=== PATIENT | male | born 1990 | race African-American/Black ===

== ENCOUNTER 2017-01-08 14:07 | Emergency (ER) | payer MEDICAID ==
[~2017-01-08] VITALS: Ht 180.3 cm; Wt 95.0 kg
[2017-01-08 14:57] VITALS: BP 135/85
== END 2017-01-08 16:45 | disposition home or self-care (01) ==
LOC: ER 14:38
DX: T16.1XXA Foreign body in right ear, initial encounter (principal); F42.9 Obsessive-compulsive disorder, unspecified; F17.210 Nicotine dependence, cigarettes, uncomplicated; F12.10 Cannabis abuse, uncomplicated; Z98.890 Other specified postprocedural states; X58.XXXA Exposure to other specified factors, initial encounter; Y93.E8 Activity, other personal hygiene; Y92.018 Other place in single-family (private) house as the place of occurrence of the external cause
CPT/HCPCS: 69200; 99284